=== PATIENT | female | born 1935 | race Caucasian/White ===

== ENCOUNTER 2023-05-09 03:08 | Emergency (ER) | payer MEDICARE, SELFPAY ==
[2023-05-09] VITALS (17 sets, daily range): BP systolic 139–159; BP diastolic 76–79; PULSE 72–99; RESP 18–22; TEMP 36.8; O2SAT 97
--- NOTE | 2023-05-09 04:02 | PC.NURSE ---
Pt presents to ER for cold symptoms and sore lymph nodes in her neck Pt states she has had a cough and cold for several weeks that will not go away Pt denies chest pain or shortness of breath Pt is bringing up large amounts of green mucus with her cough
--- NOTE | 2023-05-09 04:09 | ED.URI1 ---
HPI - URI/Sore Throat General Chief Complaint: Upper Respiratory Infection Stated Complaint: SWELLING NECK GLANDS Time Seen by Provider: 05/09/23 03:54 Source: patient Limitations: no limitations History of Present Illness HPI Narrative: patient presents complaining of cold for 2 weeks. Tonight states she also felt sore around her neck and decided to come in. She is not short of breath. no chest pain or fever. Cough is productive . No abdominal pain or nausea Related Data Allergies Allergy/AdvReac Type Severity Reaction Status Date / Time No Known Drug Allergies Allergy Verified 05/09/23 03:20 Review of Systems ROS Status of ROS 10 or more systems reviewed and unremarkable except as noted in history and below [facility] Social History Smoking status: Former smoker Exam Constitutional Vital Signs, click to edit/add: Last Vital Signs Temp 98.3 F 05/09/23 03:16 Pulse 79 05/09/23 05:50 Resp 22 05/09/23 05:50 BP 139/79 05/09/23 03:16 Pulse Ox 97 05/09/23 03:16 O2 Del Method Room Air 05/09/23 03:16 Common normals: no apparent distress, average body habitus, oriented x3, no limitations, healthy appearing, alert and well nourished Eye Common normals: EOMs intact bilaterally and conjunctivae normal Respiratory Auscultation: bronchial breath sounds Cardio Common normals: regular rate, regular rhythm, S1 normal heart sound and S2 normal heart sound GI Common normals: Normal to inspection, nondistended, normoactive bowel sounds present, soft to palpation and non-tender Extremity Common normals: normal to inspection and full ROM Neuro Common normals: oriented x3, CN's II-XII intact bilaterally, moves all extremities and no focal motor deficits Psych Appearance: grossly normal Course Vital Signs Vital signs: Vital Signs Temperature 98.3 F 05/09/23 03:16 Pulse Rate 99 H 05/09/23 03:16 Respiratory Rate 18 05/09/23 03:16 Blood Pressure 139/79 05/09/23 03:16 Pulse Oximetry 97 05/09/23 03:16 Oxygen Delivery Method Room Air 05/09/23 03:16 Temperature 98.3 F 05/09/23 03:16 Pulse Rate 79 05/09/23 05:50 Respiratory Rate 22 05/09/23 05:50 Blood Pressure 139/79 05/09/23 03:16 Pulse Oximetry 97 05/09/23 03:16 Oxygen Delivery Method Room Air 05/09/23 03:16 MDM - URI/Sore Throat MDM Narrative Medical decision making narrative: patient presents with a cough for the past week. not short of breath. chest with bronchial breath sounds and cxray with possible infiltrate right costophrenic margin. Resp. panel pending. Patient informed of possible pneumonia and concern for bronchitis. dosed with zithromax and informed of the importance of follow up with her PCP. Patient in no resp distress. labs with elevated WBC and mild renal insufficiency. patient encouraged to drink fluids. Discharged in the care of her daughter. Resp. panel pending Lab Data Labs: Lab Results 05/09/23 Range/Units 04:30 WBC 14.5 H (4.0-11.0) 10^3/uL RBC 3.46 L (4.20-5.40) 10^6/uL Hgb 10.9 L (12.0-16.0) g/dL Hct 33.4 L (36.0-48.0) % MCV 96.5 (81.0-99.0) fL MCH 31.5 (26.7-34.0) pg MCHC 32.6 (29.9-35.2) g/dL RDW 12.2 (11.0-15.0) % Plt Count 282 (150-450) 10^3/uL MPV 10.2 (9.5-13.5) fL Neut % (Auto) 84.7 H (43.0-75.0) % Lymph % (Auto) 8.0 L (20.5-60.0) % Mchenry % (Auto) 5.3 (1.7-12.0) % Eos % (Auto) 0.8 L (0.9-7.0) % Baso % (Auto) 0.6 (0.2-2.0) % Neut # (Auto) 12.3 H (1.4-6.5) 10^3/uL Lymph # (Auto) 1.2 (1.2-3.8) 10^3/uL Mchenry # (Auto) 0.8 (0.3-0.8) 10^3/uL Eos # (Auto) 0.1 (0.0-0.7) 10^3/uL Baso # (Auto) 0.1 (0.0-0.1) 10^3/uL Abs Immat Gran (auto) 0.09 H (0.00-0.03) 10^3/uL Imm/Tot Granulo (auto) 0.6 H (0.0-0.5) % Sodium 138 (136-145) mmol/L Potassium 3.5 (3.5-5.1) mmol/L Chloride 102 (98-107) mmol/L Carbon Dioxide 25.4 (21.0-32.0) mmol/L Anion Gap 14.1 BUN 25.0 H (7.0-18.0) mg/dL Creatinine 1.41 H (0.55-1.02) mg/dL Est GFR ( Amer) 43 L (>=60) Est GFR (Non-Af Amer) 35 L (>=60) BUN/Creatinine Ratio 17.7 Glucose 110 H (74-106) mg/dL Calcium 8.8 (8.5-10.1) mg/dL Troponin I High Sens 19.2 (4.0-51.3) pg/mL Imaging Data Chest x-ray: Radiologist's impression: ITS Impressions Chest X-Ray 05/09/23 04:11 IMPRESSION: Blunting of the right lateral costophrenic angle suggesting a small amount of pleural fluid and mild patchy atelectasis and/or infiltrate laterally at the right lung base. Electronically authenticated by: PROMISE TEE Date: 05/09/2023 04:35 Discharge Plan Discharge Chief Complaint: Upper Respiratory Infection Clinical Impression: Upper respiratory infection, Bronchitis Patient Disposition: Home, Self-Care Instructions: Upper Respiratory Infection (ED), Acute Bronchitis (ED) Additional Instructions: follow up with family doctor in a couple of days for recheck Stand Alone Forms: Portal Instructions Referrals: Physician,Non-Staff, MD [Primary Care Provider] - 1 week
--- NOTE | 2023-05-09 04:11 | XR_ITS ---
The [address] [address] Patient Name: GIOVANNI CRUZ MRN: [id number] date: 1935 Sex: F Assigned Patient Location: ER Current Patient Location: ER Accession/Order Number: [id number] Exam Date: 05/09/2023 04:19 Report Date: 05/09/2023 04:35 At the request of: MIKO DAMIAN Procedure: XR chest 1V EXAM: XR chest 1V HISTORY: Cough; technologist notes state productive cough for a few weeks. COMPARISON: Chest radiograph dated 12/29/2022. TECHNIQUE: AP erect portable chest radiograph performed. FINDINGS: The trachea is unremarkable. The cardiac silhouette is upper limits normal size and stable. Moderate atheromatous calcification at the aortic arch. Blunting of the right lateral costophrenic angle suggesting a small amount of pleural fluid and mild patchy atelectasis and/or infiltrate laterally at the right lung base. There is no pulmonary vascular congestion. Stable small calcified granuloma laterally at the right lung base. There is no pneumothorax. The bony structures are osteopenic. There is no acute osseous abnormality. XR/XR chest 1V IMPRESSION: Blunting of the right lateral costophrenic angle suggesting a small amount of pleural fluid and mild patchy atelectasis and/or infiltrate laterally at the right lung base. Electronically authenticated by: PROMISE TEE Date: 05/09/2023 04:35
--- NOTE | 2023-05-09 04:11 | ECG_ITS ---
The [facility] Test Date: 2023-05-09 Pat Name: GIOVANNI CRUZ Department: Room: - Gender: Female On Call Pharmacy Technician: : 1935 Requested By: [id number] Order Number: [id number] Reading MD: SUKI SINGH Measurements Intervals [place] Rate: 79 P: 30 TN: 154 QRS: 61 QRSD: 84 T: 51 QT: 390 QTc: 425 Interpretive Statements 1100 Sinus rhythm 4068 Nonspecific Tw[place] abnormality 9130 borderline ECG No previous ECG available for comparison Electronically Signed On 05-09-2023 7:00:46 EST by SUKI SINGH
[2023-05-09 04:56] LABS: Basophils Absolute Auto 0.1 10^3/uL (0.0-0.1); Basophils Percent Auto 0.6 % (0.2-2.0); Eosinophils Absolute Auto 0.1 10^3/uL (0.0-0.7); Eosinophils Percent Auto 0.8 % (0.9-7.0); Hematocrit 33.4 % (36.0-48.0); Hemoglobin 10.9 g/dL (12.0-16.0); Immature Granulocytes Abs Auto 0.09 10^3/uL (0.00-0.03); Immature Granulocytes Pct Auto 0.6 % (0.0-0.5); Lymphocytes Absolute Auto 1.2 10^3/uL (1.2-3.8); Mean Corpuscular HGB Conc 32.6 g/dL (29.9-35.2); Mean Corpuscular Hemoglobin 31.5 pg (26.7-34.0); Mean Corpuscular Volume 96.5 fL (81.0-99.0); Mean Platelet Volume 10.2 fL (9.5-13.5); Monocytes Absolute Auto 0.8 10^3/uL (0.3-0.8); Monocytes Percent Auto 5.3 % (1.7-12.0); Neutrophils Absolute Auto 12.3 10^3/uL (1.4-6.5); Neutrophils Percent Auto 84.7 % (43.0-75.0); Platelet Count 282 10^3/uL (150-450); Red Blood Count 3.46 10^6/uL (4.20-5.40); Red Cell Distribution Width 12.2 % (11.0-15.0); White Blood Count 14.5 10^3/uL (4.0-11.0)
[2023-05-09 05:15] LABS: Anion Gap 14.1; BUN Creatinine Ratio 17.7; Calcium 8.8 mg/dL (8.5-10.1); Carbon Dioxide 25.4 mmol/L (21.0-32.0); Chloride 102 mmol/L (98-107); Estimated GFR (African America 43 (>=60); Estimated GFR (Non-African Ame 35 (>=60); Glucose 110 mg/dL (74-106); Potassium 3.5 mmol/L (3.5-5.1); Sodium 138 mmol/L (136-145); Troponin I High Sensitivity 19.2 pg/mL (4.0-51.3)
[2023-05-09 05:44] LABS: Adenovirus NOT DETECTED (NOT DETECTE); Bordetella parapertussis NOT DETECTED (NOT DETECTE); Coronavirus 229E NOT DETECTED (NOT DETECTE); Coronavirus HKU1 NOT DETECTED (NOT DETECTE); Coronavirus NL63 NOT DETECTED (NOT DETECTE); Coronavirus OC43 NOT DETECTED (NOT DETECTE); Human Metapneumovirus NOT DETECTED (NOT DETECTE); Influenza A NOT DETECTED (NOT DETECTE); Influenza B NOT DETECTED (NOT DETECTE); Mycoplasma pneumoniae NOT DETECTED (NOT DETECTE); Parainfluenza Virus 1 NOT DETECTED (NOT DETECTE); Parainfluenza Virus 2 NOT DETECTED (NOT DETECTE); Parainfluenza Virus 3 NOT DETECTED (NOT DETECTE); Parainfluenza Virus 4 NOT DETECTED (NOT DETECTE); Respiratory Syncytial Virus NOT DETECTED (NOT DETECTE); SARS-CoV-2 NOT DETECTED (NOT DETECTE)
[2023-05-09 06:35] LABS: Human Rhinovirus/Enterovirus DETECTED (NOT DETECTE)
[2023-05-09] MEDS: AZITHROMYCIN 250 MG TABLET 500 MG PO (06:50)
== END 2023-05-09 06:59 | disposition home or self-care (01) ==
PROVIDERS: Emergency Provider Internal Medicine
DX: J06.9 Acute upper respiratory infection, unspecified (principal); J40 Bronchitis, not specified as acute or chronic; Z87.891 Personal history of nicotine dependence; Z20.822 Contact with and (suspected) exposure to COVID-19
CPT/HCPCS: 0202U; 36415; 71045; 80048; 84484; 85025; 93005; 99285